=== PATIENT | male | born 1970 | race Caucasian/White ===

== ENCOUNTER 2017-03-11 01:59 | Inpatient (IN) | payer MEDICAID ==
[~2017-03-11] VITALS: Ht 180.3 cm; Wt 93.0 kg
[2017-03-11 04:15] VITALS: BP 148/91
--- NOTE | 2017-03-11 04:15 | NUR ---
RN OPEN NOTES RECEIVED PATIENT FROM [facility] VIA EMT. A/O X4. NO SIGNS OF DISTRESS OR DISCOMFORT. BREATHING EVEN AND UNLABORED. IV ACCESS IN RFA PATENT AND INTACT, NO SIGNS OF REDNESS OR INFILTRATION. PATIENT COMPLAINS OF N/V WITH MODERATE AMOUNT OF BROWN VOMIT. ORIENTED PATIENT TO UNIT AND ROOM. ATTACHED TELE MONITORING WITH ST 108 NOTED. BED IN LOW LOCKED POSITION WITH SIDE RAILS X2. CALL LIGHT WITHIN REACH. WILL CONTINUE TO MONITOR.
[2017-03-11] MEDS ORDERED: FURO20TA4 PO (05:25)
[2017-03-11] MEDS ORDERED: LORA1TAB PO (05:25)
[2017-03-11] MEDS ORDERED: CARV12.52 PO (05:25)
[2017-03-11] MEDS ORDERED: NICO1PAT44 TP (05:25)
[2017-03-11] MEDS ORDERED: FOLI1TAB16 PO (05:25)
[2017-03-11] MEDS ORDERED: SPIR25TA4 PO (05:25)
[2017-03-11] MEDS ORDERED: THIA100T70 PO (05:25)
[2017-03-11] MEDS ORDERED: LISI10TA5 PO (05:25)
[2017-03-11] MEDS ORDERED: MULT1TAB73 PO (05:25)
[2017-03-11] MEDS ORDERED: DIGO125T PO (05:25)
[2017-03-11] MEDS ORDERED: MAGNESIUM HYDROXIDE 30 ML UDC PO PRN (06:30)
[2017-03-11] MEDS ORDERED: ALBUTEROL HALF STRENGTH 1.25 MG/3 ML VIAL.NEB NEB PRN (06:30)
[2017-03-11] MEDS ORDERED: ZOLPIDEM TARTRATE 5 MG TABLET PO PRN (06:30)
[2017-03-11] MEDS ORDERED: HYDROCODONE/APAP 5/325MG 1 EACH TABLET PO PRN (06:30)
[2017-03-11] MEDS ORDERED: ACETAMINOPHEN 325 MG TABLET PO PRN (06:30)
[2017-03-11 06:51] VITALS: BP 141/87
[2017-03-11 07:23] LABS: EOSINOPHILS % (AUTO) 0.1 % (0.0-6.0); HEMATOCRIT 47 % (39-51); HEMOGLOBIN 15.6 g/dL (13.5-17.5); LYMPHOCYTES # (AUTO) 0.9 /CMM (0.8-4.8); LYMPHOCYTES % (AUTO) 9.9 % (20.0-44.0); MEAN CORPUSCULAR HEMOGLOBIN 33 PG (26.0-33.0); MEAN CORPUSCULAR HGB CONC 33 g/dl (31.0-36.0); MEAN CORPUSCULAR VOLUME 100 fL (80-96); MONOCYTES # (AUTO) 0.5 /CMM (0.1-1.30); MONOCYTES % (AUTO) 5.2 % (2.0-12.0); NEUTROPHILS # (AUTO) 7.8 /CMM (1.8-8.9); NEUTROPHILS % (AUTO) 84.8 % (43.0-81.0); PLATELET COUNT (AUTO) 188 /CMM (150-450); RDW COEFFICIENT OF VARIATION 14.1 (11.5-15.0); RED BLOOD CELL COUNT(AUTO) 4.68 MIL/uL (4.5-6.0); WHITE BLOOD COUNT (AUTO) 9.2 K/uL (4.3-11.0)
--- NOTE | 2017-03-11 07:30 | NUR ---
RECEIVED PT. ALERT AND ORIENTED,SPLITTER HEAD ARGELIA VELAZQUEZ.
[2017-03-11 07:53] LABS: TROPONIN I < 0.017 ng/mL (0.00-0.056)
[2017-03-11 08:00] LABS: ALANINE AMINOTRANSFERASE 115 U/L (12-78); ALBUMIN 3.9 g/dL (3.4-5.0); ALKALINE PHOSPHATASE 110 U/L (46-116); ASPARTATE AMINOTRANSFERASE 126 U/L (15-37); B-TYPE NATRIURETIC PEPTIDE 144 PG/ML (0-125); BILIRUBIN,TOTAL 3.5 mg/dL (0.2-1.0); CALCIUM, SERUM 9.2 mg/dL (8.5-10.1); CARBON DIOXIDE 25 mmol/L (21-32); CHLORIDE 104 mmol/L (98-107); CREATININE 0.9 mg/dL (0.6-1.3); GLUCOSE 109 mg/dL (74-106); MAGNESIUM 1.5 mg/dL (1.8-2.4); PHOSPHORUS 2.6 mg/dL (2.5-4.9); POTASSIUM 4.1 mmol/L (3.5-5.1); SODIUM SERUM 143 mmol/L (136-145); UREA NITROGEN, BLOOD 10 mg/dL (7-18)
--- NOTE | 2017-03-11 08:00 | NUR ---
RN CLOSING NOTES PATIENT AWAKE IN BED. A/O X4. NO SIGNS OF DISTRESS OR DISCOMFORT. BREATHING EVEN AND UNLABORED. IV ACCESS IN RFA PATENT AND INTACT, NO SIGNS OF REDNESS OR INFILTRATION. ON TELE MONITORING WITH ST 110 NOTED. ALL NEEDS MET. NO SIGNIFICANT CHANGES THROUGH THE NIGHT. BED IN LOW LOCKED POSITION WITH SIDE RAILS X2. CALL LIGHT WITHIN REACH. WILL ENDORSE TO AM SHIFT FOR GIULIANA.
[2017-03-11 08:26] LABS: CHOLESTEROL 208 mg/dL (<200); HDL CHOLESTEROL 65 mg/dL (40-60); LDL 127 mg/dL (0-99); TRIGLYCERIDES 109 mg/dL (30-150)
[2017-03-11] MEDS: PANTOPRAZOLE 40 MG TABLET.DR PO SCH ×2 (08:30→16:31)
[2017-03-11 08:52] VITALS: BP 132/80
[2017-03-11] MEDS: CARVEDILOL 12.5 MG TABLET PO SCH ×2 (09:00→21:28)
[2017-03-11] MEDS: DOCUSATE SODIUM 100 MG CAPSULE PO SCH ×2 (09:00→16:39)
[2017-03-11] MEDS: ONDANSETRON HCL/PF 4 MG/2 ML VIAL IVP PRN ×3 (09:03→21:46)
[2017-03-11] MEDS: Magnesium 1GM/D5W 100ML PREMIX 100 ML IV SCH ×2 (09:30→10:57)
[2017-03-11] MEDS: NICOTINE PATCH (14MG) 14 MG PATCH.TD24 TD SCH (09:41)
--- NOTE | 2017-03-11 10:00 | NUR ---
DR. DUARTE AND DR. CHAN IN TO SEE PT.PT. EXPRESSED FEELING SOB WITH OUT O2.CANNULA PUT ON AT 2L.
[2017-03-11] MEDS: CYANOCOBALAMIN 1,000 MCG/ML VIAL IM SCH (12:56)
[2017-03-11] MEDS: MORPHINE SULFATE INJ 2 MG/ML DISP.SYRIN IV PRN ×2 (13:55→21:41)
--- NOTE | 2017-03-11 14:34 | NUR ---
Social service consult for ETOH withdrawal. SANYA met with pt. bedside. Pt. is alert and oriented x4. Pt. was cooperative and friendly during the assessment. Pt. states he lives alone in [place] in his home located at [address] Pt. [place] [facility] and feels lonely at times and doesn't like living alone. Pt. is and has a 17 year old daughter that he is not in communication with at this time. Pt. has a sister Mirtha Charles who resides in [facility]. Pt. states he drank half a bottle of wine on Friday. Pt's drink of choice is Vodka. Pt. states since his best friend recently, he has been drinking much more. Pt. appears to have lot of stressors and trauma, such as of both his parents, divorce, no contact with his daughter and being unemployed. Pt. was receiving unemployment benefits but not anymore. Pt. states his savings is dwindling down. Pt. would like to apply for General Relief and Food stamps. SANYA to provide address of [employer] office prior to pt. being discharged. Pt. has been to three different alcohol treatment programs in the past. Pt. seems resistant at this time to want to go to treatment, stating " I need to get a job or I will lose my home". SANYA to offer pt. various referrals to drug and alcohol treatment programs along with list of AA meetings. Pt. states, he has not paid his mortgage in two months. Pt. has some social supports from his friends. His friend Timur Patiño has offered pt. financial help, if needed. Pt. suffers from anxiety and Depression and has seen a psychiatrist in the past. Pt. is currently not taking any psychiatric medications at this time. 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 Pt. was working in [employer] two and a half years ago. SANYA to give pt. referrals to Alcohol treatment programs, list of AA meetings for [facility] and information to [employer] [place] [phone] [facility] [place] [address].
[2017-03-11 16:00] VITALS: BP 138/83
--- NOTE | 2017-03-11 16:00 | NUR ---
MG. REPLACEMENT DONE,MED. X 2 WITH ZOFRAN IV.GIVEN MORPHINE IV FOR CHEST AND ABD. PAIN
[2017-03-11] MEDS: THIAMINE HCL 100 MG TABLET PO SCH (16:31)
[2017-03-11] MEDS: DIGOXIN 0.125 MG TABLET PO SCH (16:32)
[2017-03-11] MEDS: LISINOPRIL (10MG) 10 MG TABLET PO SCH (16:33)
[2017-03-11] MEDS: SPIRONOLACTONE 25 MG TABLET PO SCH (16:33)
[2017-03-11] MEDS: FOLIC ACID 1 MG TABLET PO SCH (16:39)
[2017-03-11] MEDS: MULTIVITAMINS,THERAGRAN 1 UDTAB TABLET PO SCH (16:39)
--- NOTE | 2017-03-11 18:00 | NUR ---
WHEN UP TO BATHRM. HEART RATE TO 142 WITHOUT O2 ON.
--- NOTE | 2017-03-11 19:00 | NUR ---
MS RN OPENING NOTES RECEIVE PT RESTING IN BED, A/OX 4. NO S/S OF RESPIRATORY DISTRESS OR SOB. SAFETY MEASURES IN PLACE, ON LOW BED TO ENSURE SAFETY. CALL LIGHT WITHIN REACH. WILL CONTINUE TO MONITOR
[2017-03-11 20:00] VITALS: BP 129/81
[2017-03-12] VITALS (8 sets, daily range): BP systolic 94–129; BP diastolic 61–84
[2017-03-12] MEDS: MORPHINE SULFATE INJ 2 MG/ML DISP.SYRIN IV PRN ×4 (04:38→21:57)
[2017-03-12] MEDS: ONDANSETRON HCL/PF 4 MG/2 ML VIAL IVP PRN ×3 (04:39→16:35)
--- NOTE | 2017-03-12 06:15 | NUR ---
FILM VAULT SUPERVISOR CLOSING NOTES PATIENT COMFORTABLY ASLEEP AND EASILY AWAKEN, HEAD OF BED ELEVATED FOR BETTER LUNG EXPANSION TOLERATING ROOM AIR 98% IV SITE NO S/S OF INFILTRATED PATENT AND FLUSHED, PATIENT DENIES PAIN AT THIS TIME. 0/10 NO COMPLAINS OF CHEST PAIN THROUGHOUT THE SHIFT. RESPIRATIONS EVEN AND UNLABORED. NO S/S OF ACUTE DISTRESS, NO SOB, NO CHANGE OF CONDITION, SKIN WARM AND DRY TO TOUCH, AFEBRILE, ALL NURSING CARE NEEDS PROVIDED AND RENDERED, KEPT CLEAN AND DRY AND COMFORTABLE, GOOD SKIN CARE PROVIDED. FREQUENT VISUAL CHECK DONE FOR SAFETY EVERY 2 HOURS. SAFE HAZARD FREE ENVIRONMENT PROVIDED. CALL LIGHT WITHIN EASY TO REACH, ON LOW BED AT ALL TIMES TO ENSURE SAFETY, WILL ENDORSE TO THE NEXT SHIFT CONTINUE PLAN OF CARE Addendum: 03/12/17 at 0616 by FARIHA GLASGOW RN ADDENDUM: ATTACH TO TELE MONITOR SR, 75'S
[2017-03-12 06:45] LABS: BASOPHILS % (AUTO) 0.1 % (0.0-2.0); EOSINOPHILS # (AUTO) 0.1 /CMM (0.0-0.7); EOSINOPHILS % (AUTO) 1.3 % (0.0-6.0); HEMATOCRIT 44 % (39-51); HEMOGLOBIN 14.6 g/dL (13.5-17.5); LYMPHOCYTES # (AUTO) 1.3 /CMM (0.8-4.8); LYMPHOCYTES % (AUTO) 14.9 % (20.0-44.0); MEAN CORPUSCULAR HEMOGLOBIN 34 PG (26.0-33.0); MEAN CORPUSCULAR HGB CONC 34 g/dl (31.0-36.0); MEAN CORPUSCULAR VOLUME 101 fL (80-96); MONOCYTES # (AUTO) 0.6 /CMM (0.1-1.30); NEUTROPHILS # (AUTO) 6.7 /CMM (1.8-8.9); NEUTROPHILS % (AUTO) 76.7 % (43.0-81.0); PLATELET COUNT (AUTO) 157 /CMM (150-450); RDW COEFFICIENT OF VARIATION 14.5 (11.5-15.0); RED BLOOD CELL COUNT(AUTO) 4.31 MIL/uL (4.5-6.0); WHITE BLOOD COUNT (AUTO) 8.8 K/uL (4.3-11.0)
[2017-03-12 06:51] LABS: ALBUMIN 3.4 g/dL (3.4-5.0); BILIRUBIN,TOTAL 3.1 mg/dL (0.2-1.0); CALCIUM, SERUM 8.6 mg/dL (8.5-10.1); CREATININE 0.8 mg/dL (0.6-1.3); MAGNESIUM 1.9 mg/dL (1.8-2.4); PHOSPHORUS 3.9 mg/dL (2.5-4.9); POTASSIUM 3.4 mmol/L (3.5-5.1); TOTAL PROTEIN, SERUM 7.2 g/dL (6.4-8.2)
[2017-03-12] MEDS ORDERED: POTASSIUM CHLORIDE 20 MEQ TAB.PRT.SR PO SCH (08:00)
[2017-03-12] MEDS: THIAMINE HCL 100 MG TABLET PO SCH (09:18)
[2017-03-12] MEDS: CYANOCOBALAMIN 1,000 MCG/ML VIAL IM SCH (09:18)
[2017-03-12] MEDS: FOLIC ACID 1 MG TABLET PO SCH (09:19)
[2017-03-12] MEDS: CARVEDILOL 12.5 MG TABLET PO SCH ×2 (09:19→21:54)
[2017-03-12] MEDS: NICOTINE PATCH (14MG) 14 MG PATCH.TD24 TD SCH (09:19)
[2017-03-12] MEDS: MULTIVITAMINS,THERAGRAN 1 UDTAB TABLET PO SCH (09:19)
[2017-03-12] MEDS: PANTOPRAZOLE 40 MG TABLET.DR PO SCH (09:20)
[2017-03-12] MEDS: DOCUSATE SODIUM 100 MG CAPSULE PO SCH ×2 (09:20→17:58)
--- NOTE | 2017-03-12 09:30 | NUR ---
DR. DUARTE,DR. CHAN IN TO SEE PT.ORDERS GIVEN.
--- NOTE | 2017-03-12 09:45 | NUR ---
TELE DC,D PER ORDERS.
--- NOTE | 2017-03-12 10:00 | NUR ---
POX CHECK ON RM. AIR AND 90-91%.PT. STATES A LITTLE SOB AT TIMES.
--- NOTE | 2017-03-12 11:30 | NUR ---
UP IN [facility] AMB.A LITTLE TIRED AND WEAK AFTER THIS.
[2017-03-12] MEDS: DIGOXIN 0.125 MG TABLET PO SCH (13:10)
[2017-03-12] MEDS: LISINOPRIL (10MG) 10 MG TABLET PO SCH (15:57)
[2017-03-12] MEDS: LORAZEPAM 1 MG TABLET PO PRN (15:57)
--- NOTE | 2017-03-12 17:30 | NUR ---
RELOCATED PT. TO RM.322-1.ROOMATE TALKING LOUDLY AND OFTEN.
[2017-03-12] MEDS: SPIRONOLACTONE 25 MG TABLET PO SCH (17:57)
--- NOTE | 2017-03-12 18:00 | NUR ---
MED. X2 WITH ZOFRAN,X1 WITH MORPHINE AND X1 WITH ATIVAN.
--- NOTE | 2017-03-13 00:46 | NUR ---
lovenox 40 mg is discontinued by
[2017-03-13] MEDS: LORAZEPAM 1 MG TABLET PO PRN ×2 (01:49→09:54)
[2017-03-13] MEDS: ONDANSETRON HCL/PF 4 MG/2 ML VIAL IVP PRN ×2 (01:49→08:33)
--- NOTE | 2017-03-13 07:30 | NUR ---
MS RN OPENING NOTE PATIENT IS ALERT AND ORIENTED x4. NO PAIN AT THIS TIME. NO SOB OR DISTRESS NOTED.CALL LIGHT WITHIN REACH. SAFETY MEASURES IMPLEMENTED. ABLE TO COMMUNICATE NEEDS. IV ON RIGHT FOREARM INTACT AND PATENT NO FLUIDS RUNNING AT THIS TIME. AMBULATORY. WILL CONTINUE TO MONITOR
[2017-03-13 08:00] VITALS: BP 120/75
--- NOTE | 2017-03-13 08:30 | NUR ---
MS RN NOTE PATIENT HAD THREE EPISODES OF EMESIS. OFFERED ICE CHIPS AND CRACKERS, MEDICATION GIVEN. WILL RECHECK.
[2017-03-13] MEDS: DOCUSATE SODIUM 100 MG CAPSULE PO SCH ×2 (08:35→16:59)
[2017-03-13] MEDS: NICOTINE PATCH (14MG) 14 MG PATCH.TD24 TD SCH (08:36)
[2017-03-13] MEDS: THIAMINE HCL 100 MG TABLET PO SCH (08:36)
[2017-03-13] MEDS: LISINOPRIL (10MG) 10 MG TABLET PO SCH (08:36)
[2017-03-13] MEDS: MULTIVITAMINS,THERAGRAN 1 UDTAB TABLET PO SCH (08:36)
[2017-03-13] MEDS: SPIRONOLACTONE 25 MG TABLET PO SCH (08:36)
[2017-03-13] MEDS: FOLIC ACID 1 MG TABLET PO SCH (08:36)
[2017-03-13] MEDS: CYANOCOBALAMIN 1,000 MCG/ML VIAL IM SCH (08:36)
[2017-03-13] MEDS: PANTOPRAZOLE 40 MG TABLET.DR PO SCH (08:36)
[2017-03-13] MEDS: CARVEDILOL 12.5 MG TABLET PO SCH (08:36)
[2017-03-13] MEDS: MORPHINE SULFATE INJ 2 MG/ML DISP.SYRIN IV PRN (08:47)
[2017-03-13] MEDS: DIGOXIN 0.125 MG TABLET PO SCH (14:23)
[2017-03-13 16:37] VITALS: BP 99/53
--- NOTE | 2017-03-13 18:00 | NUR ---
MS DERMATOLOGY SALES REPRESENTATIVE NOTE PATIENT IS ALERT AND ORIENTED x4. NO PAIN AT THIS TIME. NO SOB OR DISTRESS NOTED. CALL LIGHT WITHIN REACH AT ALL TIMES. SAFETY MEASURES IMPLEMENTED. ABLE TO COMMUNICATE NEEDS. ALL NURSING CARE NEEDS CARED FOR. PRESCRIPTION GIVEN TO PATIENT, GAVE INSTRUCTIONS, AND PATIENT ABLE TO RETURN DEMONSTRATION. ALL DISCHARGE INSTRUCTIONS GIVEN TO PATIENT AT BEDSIDE, PATIENT ABLE TO TEACH BACK INSTRUCTIONS. ALL BELONGINGS WITH PATIENT. GIVEN TWO BUS TOKENS.
== END 2017-03-13 18:00 | disposition home or self-care (01) | DRG 775 ==
LOC: MED 04:00 → TELE 06:38 → MED 03-12 08:19
PROVIDERS: ADMIT Internal Medicine; ATTEND Internal Medicine
DX: F10.239 Alcohol dependence with withdrawal, unspecified (principal); I50.33 Acute on chronic diastolic (congestive) heart failure; I42.6 Alcoholic cardiomyopathy; E83.42 Hypomagnesemia; I11.0 Hypertensive heart disease with heart failure; Y90.9 Presence of alcohol in blood, level not specified; F10.229 Alcohol dependence with intoxication, unspecified; I25.10 Atherosclerotic heart disease of native coronary artery without angina pectoris; R74.0 Nonspecific elevation of levels of transaminase and lactic acid dehydrogenase [LDH]; D53.9 Nutritional anemia, unspecified; Z79.899 Other long term (current) drug therapy; Z87.828 Personal history of other (healed) physical injury and trauma
CPT/HCPCS: 36415; 71010-TC; 76700-TC; 80053-TC; 80061-TC; 80162-TC; 83690-TC; 83735-TC; 83880; 84100-TC; 84484-TC; 85025-TC; 87081-TC; 93307-TC; J2270; J2405; J3420; J3475; Z7610